=== PATIENT | female | born 1980 | race Caucasian/White ===

== ENCOUNTER 2025-04-10 13:55 | Outpatient (AMB) | payer BC, SELFPAY ==
--- NOTE | 2025-04-10 14:00 | A.OFFPC_ITS ---
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 Allergies No Known Allergies Allergy (Verified 04/10/25 14:13) Tobacco use date assessed: 04/10/25 Dental Screening Dental Screen Date: 04/10/25 Did you have a dental visit in the last 12 months?: Yes Did you have a dental problem in the last 6 months where you did not have access to dental care?: No Was dental information given to patient?: Patient has dentist HPI HPI Comments History of Present Illness Details 44-year-old female with a past medical h istory of abdominal migraines and acne presents to establish care. She is due for a physical. 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 She has 2 children. Abdominal migraines-they began 2 years ago. She was evaluated at [facility]. She was prescribed Zofran as needed for nausea and Imitrex for the headache. She has not had an episode since September. She sees [facility] for acne. No history of skin cancer. She is followed by [facility]. She had an initial mammogram with abnormal finding on the left side. She had a an ultrasound and a six-month follow up mammogram and ultrasound, and the imaging findings were stable. She was instructed to continue routine mammogram annually. She has seasonal allergies treated with [id number] antihistamine. She has chronic dry eyes. No family history of colon cancer or polyps. We discussed screening age for colonoscopy is age 46. Last tetanus immunization in 2014 per patient. Tdap administered today. Patient reports that she has chronic discoloration, coldness and intermittent sores on her toes that are painful. Last PCP told her she has chilblains, however she has concerns because this does not happen over the winter, and this condition is generally associated with cold, damp conditions. She usually applies a topical steroid cream. Patient said she saw a investigator claims years ago who told her it was not Raynaud's, but she did not get a lot more information or testing. She is a nonsmoker. ROS: Constitutional: No unexplained weight loss, fever, chills, fatigue or night sweats. Eyes: No vision changes, blurry vision, double vision, eye pain, eye redness, eye discharge. ENT: No hearing loss, sneezing, congestion, runny nose or sore throat. Respiratory: No shortness of breath, cough or sputum production. Cardiovascular: No chest pain, chest pressure or chest discomfort. No palpitations or pedal edema. Gastrointestinal: No anorexia, nausea, vomiting or diarrhea. No abdominal pain or blood in stool. Genitourinary: No dysuria, hematuria, urinary frequency. Neurologic: No headache, dizziness, syncope, unilateral weakness, ataxia, numbness or tingling in the extremities. Musculoskeletal: No muscle pain, back pain, joint pain or swelling. Hematologic/Lymphatics: No bleeding or bruising. No painful lymph nodes. Skin: No rash Endocrine: No cold or heat intolerance. No polyuria or polydipsia. Psychiatric: No depression or anxiety. No SI/HI. Physical exam: Constitutional: Alert, in no distress. Head: Normocephalic. Eyes: Pupils are equal, round and reactive to light. Extraocular muscles intact. Ear, Nose and Throat: Canals clear. TMs normal. Normal nasal mucosa. No nasal discharge. No oral lesions. Neck: Supple, Full range of motion. No lymphadenopathy. No palpable thyroid masses. Respiratory: Clear to auscultation. Cardiovascular: S1 S2 regular. No murmurs. No carotid bruits. Gastrointestinal: Abdomen soft, non-tender, non-distended. Normal bowel sounds. No palpable masses. Neurologic: No focal neurological deficits. Symmetric patellar reflexes. Moves all extremities spontaneously. Sensation intact bilaterally. Musculoskeletal: No gross deformities. Normal range of motion. Psychiatric: Normal mood and affect Feet: The toes are cool to touch, left more so than the right and there is a superficial erythematous skin lesion on the left second toe adjacent to the toenail and purplish/red discoloration of the toes bilaterally. Intact DP pulses. Intact sensation. COUNTS INCLUDE 234 BEDS AT THE [facility] Medical History (Updated 04/10/25 @ 15:08 by JENNIE Pulido) Cold extremities Chilblain-like lesions of multiple toes Screening for cardiovascular condition Routine physical examination Abdominal migraine Family History (Updated 04/10/25 @ 14:20 by Kiley Trivedi MA) Other Substance abuse Social History (Updated 04/10/25 @ 14:20 by Kiley Trivedi MA) Housing: House Alcohol intake: current Patient Tobacco Use Status: Former Tobacco user Cigarette Packs Per Day: 1 Cigarettes Per Day: 6 Years Smoked: 4 e-Cigarette/Vaping Use: Never Used Second Hand Smoke Exposure: No service: No Current occupational status: employed Current occupation: [employer] Current occupational exposures/hazards: No Cognitive needs: No Hearing needs: No Vision needs: No Questionnaire PHQ-9 Over the last 2 weeks, how often have you been bothered by any of the following problems? 1. Little interest or pleasure in doing things: not at all 2. Feeling down, depressed, or hopeless: not at all 3. Trouble falling or staying asleep, or sleeping too much: several days 4. Feeling tired or having little energy: not at all 5. Poor appetite or overeating: not at all 6. Feeling bad about yourself - or that you are a failure or have let yourself or your family down: not at all 7. Trouble concentrating on things, such as reading the newspaper or watching television: not at all 8. Moving or speaking so slowly that other people could have noticed. Or the opposite - being so fidgety or restless that you have been moving around a lot more than usual: not at all 9. Thoughts that you would be better off or of hurting yourself in some way: not at all Total score: 1 Depression Screening Interpretation: Negative Depression Screening Done: Yes 70667 - PHQ-9 Billing: Yes Source: Developed by Drs. Maurice Bartholomew, Carine Nesbitt, Dougie Hammonds and colleagues, with an educational marlena from [employer]. Thrive Questionnaire Date Thrive assessed: 04/10/25 I am a: Patient What is your living situation today?: I have a steady place to live Within the past 12 months, did the food you bought not last and you didn't have the money to get more?: Never true Within the past 12 months, did you worry whether your food would run out before you got money to buy more?: Never true Do you have trouble paying for medicines?: No Do you have trouble getting transportation to medical appointments?: No Do you have trouble paying your heating and electricity bill?: No Do you have trouble taking care of your child, family member or friend?: No Do you have trouble with day-to-day activities such as bathing, preparing meals, shopping, managing finances, etc.?: No Are you currently unemployed and looking for a job?: No Are you interested in more education?: No Please select the resources that you would like help with: None Currently or been in a relationship where the following occur: No concerns reported THRIVE Score: 0 AUDIT C Alcohol Use Questionnaire (AUDIT-C) 1. How often do you have a drink containing alcohol?: 2-3 times a week 2. How many drinks containing alcohol do you have on a typical day when you are drinking?: 1 or 2 3. How often do you have six or more drinks on one occasion?: Less than monthly Total Score: 4 MIKE-7 AMB Questionnaire MIKE-7 Date MIKE - 7 assessed: 04/10/25 Feeling nervous, anxious, or on edge: 0 = Not at all Not being able to stop or control worryin = Not at all Worrying too much about different things: 1 = Several days Trouble relaxin = Several days Being so restless that it is hard to sit still: 1 = Several days Becoming easily annoyed or irritable: 0 = Not at all Feeling afraid as if something awful might happen: 0 = Not at all Total MIKE-7 score (0-4 normal; 5-9 mild; 10-14 moderate; 15-21 severe): 3 Source: Developed by Drs. Maurice Bartholomew, Carine Nesbitt, Dougie Hammonds and colleagues, with an educational marlena from [employer]. MIKE-7 Assessment Billing MIKE-7 Assessment Tool: MIKE-7 Assessment 95667 Physical exam (Primary Care) Vital Signs: Last Vital Signs Temp 97.7 F 04/10/25 14:20 Pulse 81 04/10/25 14:20 BP 116/74 04/10/25 14:20 Pulse Ox 98 04/10/25 14:20 Oxygen Delivery Method Room Air 04/10/25 14:20 BMI result Body Mass Index 34.4 Tobacco/Smoking Status: Tobacco use Status Tobacco use date assessed 04/10/25 04/10/25 14:24 Patient Tobacco Use Status Former Tobacco user 04/10/25 14:24 e-Cigarette/Vaping Use Never Used 04/10/25 14:24 PHQ-9: PHQ-9 Score PHQ-9: Total score 1 04/10/25 14:02 Depression Screening Interpretation: Negative Thrive Assessment: Date of Thrive Assessment Date Thrive assessed 04/10/25 04/10/25 14:02 Currently or been in a relationship where the following occur: No concerns reported Coding Level of Care Code New Pt Prev Care 40-64y(16135) Diagnoses Abdominal migraine G43.D0 Routine physical examination Z00.00 Screening for cardiovascular condition Z13.6 Chilblain-like lesions of multiple toes R23.8 Cold extremities R20.9 Additional Codes MIKE-7 Assessment Billing - MIKE-7 Assessment Tool: MIKE-7 Assessment 03824 ([id number]) PHQ-9 - 19558 - PHQ-9 Billing: Yes ([id number]) Assessment & Plan Assessment & Plan (1) Abdominal migraine: Code(s): G43.D0 - Abdominal migraine, not intractable Category: Medical Plan: Stable. Imitrex and Zofran as needed. Contact office for more frequent symptoms. No episodes since September 2024. (2) Routine physical examination: Code(s): Z00.00 - Encounter for general adult medical examination without abnormal findings Category: Medical Plan: Patient is seen today for a routine physical. As part of this visit we reviewed the following issues, which are considered and essential part of preventative health in this age group: - Breast Cancer screening - Annual Data Analyst Etl Developer exam - Screening for colon cancer - Blood pressure screening - Cholesterol screening - Osteoporosis prevention including calcium/vitamin D intake, weight bearing exercise & smoking cessation - Nutritional and exercise counseling - Counseling of injury prevention including fire prevention, smoke alarms and seat belt usage - Screening for depression - Education about skin cancer - Recommendations about immunizations - Recommendation of an eye exam - Screening for substance abuse (3) Screening for cardiovascular condition: Code(s): Z13.6 - Encounter for screening for cardiovascular disorders Category: Medical (4) Chilblain-like lesions of multiple toes: Code(s): R23.8 - Other skin changes Category: Medical (5) Cold extremities: Code(s): R20.9 - Unspecified disturbances of skin sensation Category: Medical Plan: She endorses symptoms for years which are stable. Check CBC, PATRICK, CRP, TSH and Sjogren's antibodies. Refer to Rheumatology. Reviewed signs and symptoms warranting ER evaluation. Plan Schedule physical in 1 year. Orders: Orders Complete Blood Count no Diff Today G43.D0 - Abdominal migraine, not intractable, Z00.00 - Encounter for general adult medical examination without abnormal findings, Z13.6 - Encounter for screening for cardiovascular disorders PATRICK Reflex Titer and Pattern Today I77.6 - Arteritis, unspecified C Reactive Protein Today I77.6 - Arteritis, unspecified Comprehensive Met. Panel Today G43.D0 - Abdominal migraine, not intractable, Z00.00 - Encounter for general adult medical examination without abnormal findings, Z13.6 - Encounter for screening for cardiovascular disorders Lipid Panel Today E78.5 - Hyperlipidemia, unspecified, G43.D0 - Abdominal migraine, not intractable, Z00.00 - Encounter for general adult medical examination without abnormal findings, Z13.6 - Encounter for screening for cardiovascular disorders TSH reflex Free T4 Today G43.D0 - Abdominal migraine, not intractable, Z00.00 - Encounter for general adult medical examination without abnormal findings, Z13.6 - Encounter for screening for cardiovascular disorders Sjogren's Antibodies Today I77.6 - Arteritis, unspecified TDaP Immunization Today Z23 - Encounter for immunization Referrals Rheumatology Referral I77.6 - Arteritis, unspecified Medications: New Boostrix Tdap (diphth,pertus(acell),tetanus) 0.5 mL IM ONCE 0.5 mL 0RF NS Z23 - Encounter for immunization
[2025-04-10 14:20] VITALS: BP 116/74; PULSE 81; TEMP 36.5; O2SAT 98; BMI 34.4
--- OUTSIDE RECORDS SUMMARY | 2025-04-10 16:48 | XMS_ITS | Patient Health Record ---
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 Name Role Phone RAHUL DUNN Unavailable [phone] Reason For Referral No Information Medications Medication SIG (Take, Route, Frequency, Duration) Notes Start Date End Date Status traZODone HCl 50 MG 1 tablet at bedtime as needed Orally Once a day; Duration: 30 day(s) 12/25/2024 Active Clindamycin Phosphate 1 % APPLY TO FACE IN THE MORNING External; Duration: 30 Days Active Tretinoin 0.025 % External; Duration: 30 Days Active Ondansetron 4 MG 1 tablet on the tong ue and allow to dissolve Orally Once a day Active SUMAtriptan Succinate 50 MG 1 tablet as needed, may take second dose at least 2 hours after first dose up to 4 tablets per day as needed Orally Once a day Active Problems Problem Type SNOMED Code ICD Code Onset Dates Problem Status W/U Status Risk Notes Problem Primary insomnia (5577529) Primary insomnia (F51.01) Active confirmed Problem Lipid screening (582119172) Encounter for screening for lipoid disorders (Z13.220) Active confirmed Problem Adult health examination (182454183) Adult general medical exam (Z00.00) Active confirmed Problem Vitamin D deficiency (27770980) Vitamin D deficiency (E55.9) Active confirmed Problem Obese class II (627344961383685 ) BMI 35.0-35.9,adult (Z68.35) Active confirmed Problem Adult-onset obesity (183730231) Adult-onset obesity (E66.9) Active confirmed Problem Endocrine/[place] lic screening (000149924) Encounter for screening for endocrine disorder (Z13.29) Active confirmed Problem Episodic migraine (533247063413559 ) Episodic migraine (G43.909) Active confirmed Vital Signs Heart Rate 90 /min 12/25/2024 Blood pressure diastolic 76 mm Hg 12/25/2024 Oximetry 99 % 12/25/2024 Height 60 in 12/25/2024 Blood pressure systolic 126 mm Hg 12/25/2024 Weight 181 lbs 12/25/2024 BMI 35.35 kg/m2 12/25/2024 Encounters Encounter Location Date Provider Diagnosis [facility] [address] [address] 12/25/2024 RAHUL DUNN Adult-onset obesity E66.9 ; BMI 35.0-35.9,adult Z68.35 ; Episodic migraine G43.909 ; Primary insomnia F51.01 and Acne vulgaris L70.0 [facility] [address] [address] 12/23/2024 RAHUL DUNN Assessments Encounter Date Diagnosis (ICD Code) Assessment Notes Treatment Notes Treatment Clinical Notes Section Notes 12/25/2024 BMI 35.0-35.9,ana lt (ICD-10 - Z68.35) Ellen is a 44-year-old female with history of obesity who presents to the office today for weight management consult. Medical history, labs, allergies, medications, and social history reviewed with the patient. Provided education on healthy diet and lifestyle which includes high-protein, low carbohydrate, high-fiber, and a variety of fruits and vegetables. Patient encouraged to exercise with emphasis on resistance training minimum 3 times per week to maintain muscle mass and cardio to burn fat. All patient questions answered. Patient will follow-up in 2 to 4 weeks for weight management. 12/25/2024: Weight 181 pounds, BMI 35.35. Seca scan completed today and interpreted with the patient. Reporting several factors contributory to weight gain including lack of time for meal prepping and exercise. Previously was at a weight of 125 pounds prior to the pandemic. Has since had progressive increase of weight despite trying to maintain a balanced diet. We discussed several treatment options for obesity including phentermine, Contrave, and GLP-1 agonist. Patient likely having most interest or phentermine however would like to further consider this decision. Discussed goals of diet and exercise as well as hydration 60 to 80 ounces daily. Patient will follow-up in office in approximate 4 weeks for further evaluation. Will likely call the office sooner to discuss medications if she would like to initiate treatment. # Insomnia: Continue trazodone 50 mg 1 tablet at bedtime as needed for sleep aid. # Migraines: Patient reporting abdominal subset migraines. Continue sumatriptan 1 tablet as needed prior to migraine onset. Can repeat 1 to 2 hours afterwards if necessary. Continue Zofran as needed for associated nausea. # Acne vulgaris: Continue tretinoin 0.025% cream applied to skin nightly. Continue topical clindamycin phosphate 1% lotion to apply to the face daily in the morning. Patient was reassured and welcomed to the practice. We discussed that we stress a hollistic medical approach with emphasis on lifestyle modification. Patient was informed that a healthy lifestyle with exercise and good eating habits can help reduce their risk of medical complications. Patient is explained that obesity increases their risk of diabetes, cardiovascular disease, or organ damage. We spent a lot of time discussing the relationship between food, exercise, sleep, mental health and obesity. Patient was counseled on the importance EATING local, organic food when possible. Patient was educated on clean 15 and dirty dozen. I provided information about reading books called The Food Rules by Curt Roblero and Eat Fat Get Lean by Dr Tello Lepe. Self education is important in the journey for weight management. Patient was offered diagnostic testing/ SECA scale. We want to measure visceral adiposity, advanced body composition, adverse lipids, fatty acid balance, risk for heart disease and atherosclerosis, markers of inflammation and genetic susceptibility. Patient was counseled on weight management and was advised to lose weight using A. Meal Replacement Products Patient was educated on the replacement products called optifast. This is a good way of taking fixed amount of calories. It has been shown in studies to be ineffective weight management tool. This however has to be coupled with lifestyle intervention as well as laboratory data and EKG monitoring. It is impossible to know how a person will tolerate complete meal replacement. The side effects of meal replacement and weight loss could include syncopal attacks, dizziness, gallstones, potential cholecystectomy, possible heart attack and even . The benefits of meal replacement would be potential weight loss but no guarantees can be made. Meal replacement products are not covered by insurance. Once the patient has bought these products we cannot return them B. Lifestyle management which includes several strategies as below 1. Eat a low carbohydrate good fat good protein diet. Eliminate refined carbohydrates from the diet. Limit sugared beverages. Eat local organic when possible. Cook your own meals. Read food labels. Focus on healthy snacks. Portion control and food with low glycemic index 2. Exercise regularly. Try to get at least 6000 steps a day. Use a predominant to track activity level. Consider using apps like 7 minute excercise, Closet Couturepal, lose it, stick as needed for self-monitoring and weight management. Consider group exercises. Consider hiring a personal support worker. Regular exercise is ann to sustainable health and prevents as a buffer against weight regain 3. Sleep is most important for healing. Try to sleep at least 6-8 hours a night. A good quality sleep needs a sleep ritual with ideal room temperature of around 68. It might help to take a shower and have no electronics in the room and sleep in a very dark room without artificial light. Start sleep routine and get up early in the morning and go to bed on time. 4. Make a social connection. Surround yourself with positive people with positive energy. Connect with friends and family. 5. Get into the habit of meditating and mindfulness while doing everything. 6. Go outside and connect with nature. C. Prescription medications Patient was educated on the use of prescription medications for medical weight loss. This is a growing list and includes phentermine, Topamax,Qsymia, contrave, belviq and saxenda, wegovy etc. All prescription medications could have side effects including but not limited to kidney stones, seizure disorder cardiac arrhythmias heart attack pancreatitis, GI effects, Etc. Patient was encouraged to read the prescription insert and have coaching with their pharmacist and make an informed decision about taking medication and know that these medications are being prescribed with good intentions and we do not know how a patient would react to the medication. Some medications are FDA approved for weight loss and there is also off label use depending on patient's inability to afford medications in an attempt to lose weight D. Behavioral counseling was done to establish a relationship between food and an mood. Patient was provided information about local counseling and psychiatry and Dr Bejarano at [facility]. We would like to cover regular topics and build on low glycemic eating exercise mindful eating, using yoga and meditation along with deep breathing and connecting with friends and family. E. MASS PAT reviewed, Patient's current medications were reviewed and opinion was given on medication that can cause weight gain and can be substituted F. Patient was assessed for risk with obesity including and not limiting to atherosclerosis heart disease stroke kidney disease, restrictive lung disease, irritable bowel syndrome and overall mortality. Risk of developing prediabetes diabetes and metabolic syndrome was discussed G. Therapeutic plan: We have decided to make therapeutic plan which would include choosing wisely on calories restricting portion getting active, tracking weight, getting good quality sleep and working on time management H. Patient will follow up in 4 weeks for weight management Total time spent today was 60 minutes of which greater than 50% was spent on coordinating and counseling Case discussed with collaborating physician Ck Wang who reviewed the assessment and plan. Chart, medications, labs, vital signs reviewed. Dictation was accomplished with the use of [employer] voice recognition software, prone to medical misidentifications and grammatical errors. This is unintentional and the practitioner does try to identify and correct these, but some could still be present. Please do not hesitate to contact practitioner for clarification. All questions answered to patients satisfaction. Patient verbalized understanding of diagnosis and treatments explained. To call sooner prior to next visit it any questions/concerns arise. 12/25/2024 Adult-onset obesity (ICD-10 - E66.9) Ellen is a 44-year-old female with history of obesity who presents to the office today for weight management consult. Medical history, labs, allergies, medications, and social history reviewed with the patient. Provided education on healthy diet and lifestyle which includes high-protein, low carbohydrate, high-fiber, and a variety of fruits and vegetables. Patient encouraged to exercise with emphasis on resistance training minimum 3 times per week to maintain muscle mass and cardio to burn fat. All patient questions answered. Patient will follow-up in 2 to 4 weeks for weight management. 12/25/2024: Weight 181 pounds, BMI 35.35. Seca scan completed today and interpreted with the patient. Reporting several factors contributory to weight gain including lack of time for meal prepping and exercise. Previously was at a weight of 125 pounds prior to the pandemic. Has since had progressive increase of weight despite trying to maintain a balanced diet. We discussed several treatment options for obesity including phentermine, Contrave, and GLP-1 agonist. Patient likely having most interest or phentermine however would like to further consider this decision. Discussed goals of diet and exercise as well as hydration 60 to 80 ounces daily. Patient will follow-up in office in approximate 4 weeks for further evaluation. Will likely call the office sooner to discuss medications if she would like to initiate treatment. # Insomnia: Continue trazodone 50 mg 1 tablet at bedtime as needed for sleep aid. # Migraines: Patient reporting abdominal subset migraines. Continue sumatriptan 1 tablet as needed prior to migraine onset. Can repeat 1 to 2 hours afterwards if necessary. Continue Zofran as needed for associated nausea. # Acne vulgaris: Continue tretinoin 0.025% cream applied to skin nightly. Continue topical clindamycin phosphate 1% lotion to apply to the face daily in the morning. Patient was reassured and welcomed to the practice. We discussed that we stress a hollistic medical approach with emphasis on lifestyle modification. Patient was informed that a healthy lifestyle with exercise and good eating habits can help reduce their risk of medical complications. Patient is explained that obesity increases their risk of diabetes, cardiovascular disease, or organ damage. We spent a lot of time discussing the relationship between food, exercise, sleep, mental health and obesity. Patient was counseled on the importance EATING local, organic food when possible. Patient was educated on clean 15 and dirty dozen. I provided information about reading books called The Food Rules by Curt Roblero and Eat Fat Get Lean by Dr Tello Lepe. Self education is important in the journey for weight management. Patient was offered diagnostic testing/ SECA scale. We want to measure visceral adiposity, advanced body composition, adverse lipids, fatty acid balance, risk for heart disease and atherosclerosis, markers of inflammation and genetic susceptibility. Patient was counseled on weight management and was advised to lose weight using A. Meal Replacement Products Patient was educated on the replacement products called optifast. This is a good way of taking fixed amount of calories. It has been shown in studies to be ineffective weight management tool. This however has to be coupled with lifestyle intervention as well as laboratory data and EKG monitoring. It is impossible to know how a person will tolerate complete meal replacement. The side effects of meal replacement and weight loss could include syncopal attacks, dizziness, gallstones, potential cholecystectomy, possible heart attack and even . The benefits of meal replacement would be potential weight loss but no guarantees can be made. Meal replacement products are not covered by insurance. Once the patient has bought these products we cannot return them B. Lifestyle management which includes several strategies as below 1. Eat a low carbohydrate good fat good protein diet. Eliminate refined carbohydrates from the diet. Limit sugared beverages. Eat local organic when possible. Cook your own meals. Read food labels. Focus on healthy snacks. Portion control and food with low glycemic index 2. Exercise regularly. Try to get at least 6000 steps a day. Use a predominant to track activity level. Consider using apps like 7 minute excercise, Closet Couturepal, lose it, stick as needed for self-monitoring and weight management. Consider group exercises. Consider hiring a personal support worker. Regular exercise is ann to sustainable health and prevents as a buffer against weight regain 3. Sleep is most important for healing. Try to sleep at least 6-8 hours a night. A good quality sleep needs a sleep ritual with ideal room temperature of around 68. It might help to take a shower and have no electronics in the room and sleep in a very dark room without artificial light. Start sleep routine and get up early in the morning and go to bed on time. 4. Make a social connection. Surround yourself with positive people with positive energy. Connect with friends and family. 5. Get into the habit of meditating and mindfulness while doing everything. 6. Go outside and connect with nature. C. Prescription medications Patient was educated on the use of prescription medications for medical weight loss. This is a growing list and includes phentermine, Topamax,Qsymia, contrave, belviq and saxenda, wegovy etc. All prescription medications could have side effects including but not limited to kidney stones, seizure disorder cardiac arrhythmias heart attack pancreatitis, GI effects, Etc. Patient was encouraged to read the prescription insert and have coaching with their pharmacist and make an informed decision about taking medication and know that these medications are being prescribed with good intentions and we do not know how a patient would react to the medication. Some medications are FDA approved for weight loss and there is also off label use depending on patient's inability to afford medications in an attempt to lose weight D. Behavioral counseling was done to establish a relationship between food and an mood. Patient was provided information about local counseling and psychiatry and Dr Bejarano at [facility]. We would like to cover regular topics and build on low glycemic eating exercise mindful eating, using yoga and meditation along with deep breathing and connecting with friends and family. E. MASS PAT reviewed, Patient's current medications were reviewed and opinion was given on medication that can cause weight gain and can be substituted F. Patient was assessed for risk with obesity including and not limiting to atherosclerosis heart disease stroke kidney disease, restrictive lung disease, irritable bowel syndrome and overall mortality. Risk of developing prediabetes diabetes and metabolic syndrome was discussed G. Therapeutic plan: We have decided to make therapeutic plan which would include choosing wisely on calories restricting portion getting active, tracking weight, getting good quality sleep and working on time management H. Patient will follow up in 4 weeks for weight management Total time spent today was 60 minutes of which greater than 50% was spent on coordinating and counseling Case discussed with collaborating physician Ck Wang who reviewed the assessment and plan. Chart, medications, labs, vital signs reviewed. Dictation was accomplished with the use of [employer] voice recognition software, prone to medical misidentifications and grammatical errors. This is unintentional and the practitioner does try to identify and correct these, but some could still be present. Please do not hesitate to contact practitioner for clarification. All questions answered to patients satisfaction. Patient verbalized understanding of diagnosis and treatments explained. To call sooner prior to next visit it any questions/concerns arise. 12/25/2024 Episodic migraine (ICD-10 - G43.909) Ellen is a 44-year-old female with history of obesity who presents to the office today for weight management consult. Medical history, labs, allergies, medications, and social history reviewed with the patient. Provided education on healthy diet and lifestyle which includes high-protein, low carbohydrate, high-fiber, and a variety of fruits and vegetables. Patient encouraged to exercise with emphasis on resistance training minimum 3 times per week to maintain muscle mass and cardio to burn fat. All patient questions answered. Patient will follow-up in 2 to 4 weeks for weight management. 12/25/2024: Weight 181 pounds, BMI 35.35. Seca scan completed today and interpreted with the patient. Reporting several factors contributory to weight gain including lack of time for meal prepping and exercise. Previously was at a weight of 125 pounds prior to the pandemic. Has since had progressive increase of weight despite trying to maintain a balanced diet. We discussed several treatment options for obesity including phentermine, Contrave, and GLP-1 agonist. Patient likely having most interest or phentermine however would like to further consider this decision. Discussed goals of diet and exercise as well as hydration 60 to 80 ounces daily. Patient will follow-up in office in approximate 4 weeks for further evaluation. Will likely call the office sooner to discuss medications if she would like to initiate treatment. # Insomnia: Continue trazodone 50 mg 1 tablet at bedtime as needed for sleep aid. # Migraines: Patient reporting abdominal subset migraines. Continue sumatriptan 1 tablet as needed prior to migraine onset. Can repeat 1 to 2 hours afterwards if necessary. Continue Zofran as needed for associated nausea. # Acne vulgaris: Continue tretinoin 0.025% cream applied to skin nightly. Continue topical clindamycin phosphate 1% lotion to apply to the face daily in the morning. Patient was reassured and welcomed to the practice. We discussed that we stress a hollistic medical approach with emphasis on lifestyle modification. Patient was informed that a healthy lifestyle with exercise and good eating habits can help reduce their risk of medical complications. Patient is explained that obesity increases their risk of diabetes, cardiovascular disease, or organ damage. We spent a lot of time discussing the relationship between food, exercise, sleep, mental health and obesity. Patient was counseled on the importance EATING local, organic food when possible. Patient was educated on clean 15 and dirty dozen. I provided information about reading books called The Food Rules by Curt Roblero and Eat Fat Get Lean by Dr Tello Lepe. Self education is important in the journey for weight management. Patient was offered diagnostic testing/ SECA scale. We want to measure visceral adiposity, advanced body composition, adverse lipids, fatty acid balance, risk for heart disease and atherosclerosis, markers of inflammation and genetic susceptibility. Patient was counseled on weight management and was advised to lose weight using A. Meal Replacement Products Patient was educated on the replacement products called optifast. This is a good way of taking fixed amount of calories. It has been shown in studies to be ineffective weight management tool. This however has to be coupled with lifestyle intervention as well as laboratory data and EKG monitoring. It is impossible to know how a person will tolerate complete meal replacement. The side effects of meal replacement and weight loss could include syncopal attacks, dizziness, gallstones, potential cholecystectomy, possible heart attack and even . The benefits of meal replacement would be potential weight loss but no guarantees can be made. Meal replacement products are not covered by insurance. Once the patient has bought these products we cannot return them B. Lifestyle management which includes several strategies as below 1. Eat a low carbohydrate good fat good protein diet. Eliminate refined carbohydrates from the diet. Limit sugared beverages. Eat local organic when possible. Cook your own meals. Read food labels. Focus on healthy snacks. Portion control and food with low glycemic index 2. Exercise regularly. Try to get at least 6000 steps a day. Use a predominant to track activity level. Consider using apps like 7 minute excercise, Closet Couturepal, lose it, stick as needed for self-monitoring and weight management. Consider group exercises. Consider hiring a personal support worker. Regular exercise is ann to sustainable health and prevents as a buffer against weight regain 3. Sleep is most important for healing. Try to sleep at least 6-8 hours a night. A good quality sleep needs a sleep ritual with ideal room temperature of around 68. It might help to take a shower and have no electronics in the room and sleep in a very dark room without artificial light. Start sleep routine and get up early in the morning and go to bed on time. 4. Make a social connection. Surround yourself with positive people with positive energy. Connect with friends and family. 5. Get into the habit of meditating and mindfulness while doing everything. 6. Go outside and connect with nature. C. Prescription medications Patient was educated on the use of prescription medications for medical weight loss. This is a growing list and includes phentermine, Topamax,Qsymia, contrave, belviq and saxenda, wegovy etc. All prescription medications could have side effects including but not limited to kidney stones, seizure disorder cardiac arrhythmias heart attack pancreatitis, GI effects, Etc. Patient was encouraged to read the prescription insert and have coaching with their pharmacist and make an informed decision about taking medication and know that these medications are being prescribed with good intentions and we do not know how a patient would react to the medication. Some medications are FDA approved for weight loss and there is also off label use depending on patient's inability to afford medications in an attempt to lose weight D. Behavioral counseling was done to establish a relationship between food and an mood. Patient was provided information about local counseling and psychiatry and Dr Bejarano at [facility]. We would like to cover regular topics and build on low glycemic eating exercise mindful eating, using yoga and meditation along with deep breathing and connecting with friends and family. E. MASS PAT reviewed, Patient's current medications were reviewed and opinion was given on medication that can cause weight gain and can be substituted F. Patient was assessed for risk with obesity including and not limiting to atherosclerosis heart disease stroke kidney disease, restrictive lung disease, irritable bowel syndrome and overall mortality. Risk of developing prediabetes diabetes and metabolic syndrome was discussed G. Therapeutic plan: We have decided to make therapeutic plan which would include choosing wisely on calories restricting portion getting active, tracking weight, getting good quality sleep and working on time management H. Patient will follow up in 4 weeks for weight management Total time spent today was 60 minutes of which greater than 50% was spent on coordinating and counseling Case discussed with collaborating physician Ck Wang who reviewed the assessment and plan. Chart, medications, labs, vital signs reviewed. Dictation was accomplished with the use of [employer] voice recognition software, prone to medical misidentifications and grammatical errors. This is unintentional and the practitioner does try to identify and correct these, but some could still be present. Please do not hesitate to contact practitioner for clarification. All questions answered to patients satisfaction. Patient verbalized understanding of diagnosis and treatments explained. To call sooner prior to next visit it any questions/concerns arise. 12/25/2024 Primary insomnia (ICD-10 - F51.01) Ellen is a 44-year-old female with history of obesity who presents to the office today for weight management consult. Medical history, labs, allergies, medications, and social history reviewed with the patient. Provided education on healthy diet and lifestyle which includes high-protein, low carbohydrate, high-fiber, and a variety of fruits and vegetables. Patient encouraged to exercise with emphasis on resistance training minimum 3 times per week to maintain muscle mass and cardio to burn fat. All patient questions answered. Patient will follow-up in 2 to 4 weeks for weight management. 12/25/2024: Weight 181 pounds, BMI 35.35. Seca scan completed today and interpreted with the patient. Reporting several factors contributory to weight gain including lack of time for meal prepping and exercise. Previously was at a weight of 125 pounds prior to the pandemic. Has since had progressive increase of weight despite trying to maintain a balanced diet. We discussed several treatment options for obesity including phentermine, Contrave, and GLP-1 agonist. Patient likely having most interest or phentermine however would like to further consider this decision. Discussed goals of diet and exercise as well as hydration 60 to 80 ounces daily. Patient will follow-up in office in approximate 4 weeks for further evaluation. Will likely call the office sooner to discuss medications if she would like to initiate treatment. # Insomnia: Continue trazodone 50 mg 1 tablet at bedtime as needed for sleep aid. # Migraines: Patient reporting abdominal subset migraines. Continue sumatriptan 1 tablet as needed prior to migraine onset. Can repeat 1 to 2 hours afterwards if necessary. Continue Zofran as needed for associated nausea. # Acne vulgaris: Continue tretinoin 0.025% cream applied to skin nightly. Continue topical clindamycin phosphate 1% lotion to apply to the face daily in the morning. Patient was reassured and welcomed to the practice. We discussed that we stress a hollistic medical approach with emphasis on lifestyle modification. Patient was informed that a healthy lifestyle with exercise and good eating habits can help reduce their risk of medical complications. Patient is explained that obesity increases their risk of diabetes, cardiovascular disease, or organ damage. We spent a lot of time discussing the relationship between food, exercise, sleep, mental health and obesity. Patient was counseled on the importance EATING local, organic food when possible. Patient was educated on clean 15 and dirty dozen. I provided information about reading books called The Food Rules by Curt Roblero and Eat Fat Get Lean by Dr Tello Lepe. Self education is important in the journey for weight management. Patient was offered diagnostic testing/ SECA scale. We want to measure visceral adiposity, advanced body composition, adverse lipids, fatty acid balance, risk for heart disease and atherosclerosis, markers of inflammation and genetic susceptibility. Patient was counseled on weight management and was advised to lose weight using A. Meal Replacement Products Patient was educated on the replacement products called optifast. This is a good way of taking fixed amount of calories. It has been shown in studies to be ineffective weight management tool. This however has to be coupled with lifestyle intervention as well as laboratory data and EKG monitoring. It is impossible to know how a person will tolerate complete meal replacement. The side effects of meal replacement and weight loss could include syncopal attacks, dizziness, gallstones, potential cholecystectomy, possible heart attack and even . The benefits of meal replacement would be potential weight loss but no guarantees can be made. Meal replacement products are not covered by insurance. Once the patient has bought these products we cannot return them B. Lifestyle management which includes several strategies as below 1. Eat a low carbohydrate good fat good protein diet. Eliminate refined carbohydrates from the diet. Limit sugared beverages. Eat local organic when possible. Cook your own meals. Read food labels. Focus on healthy snacks. Portion control and food with low glycemic index 2. Exercise regularly. Try to get at least 6000 steps a day. Use a predominant to track activity level. Consider using apps like 7 minute exceHivelyise, Closet Couturepal, lose it, stick as needed for self-monitoring and weight management. Consider group exercises. Consider hiring a personal support worker. Regular exercise is ann to sustainable health and prevents as a buffer against weight regain 3. Sleep is most important for healing. Try to sleep at least 6-8 hours a night. A good quality sleep needs a sleep ritual with ideal room temperature of around 68. It might help to take a shower and have no electronics in the room and sleep in a very dark room without artificial light. Start sleep routine and get up early in the morning and go to bed on time. 4. Make a social connection. Surround yourself with positive people with positive energy. Connect with friends and family. 5. Get into the habit of meditating and mindfulness while doing everything. 6. Go outside and connect with nature. C. Prescription medications Patient was educated on the use of prescription medications for medical weight loss. This is a growing list and includes phentermine, Topamax,Qsymia, contrave, belviq and saxenda, wegovy etc. All prescription medications could have side effects including but not limited to kidney stones, seizure disorder cardiac arrhythmias heart attack pancreatitis, GI effects, Etc. Patient was encouraged to read the prescription insert and have coaching with their pharmacist and make an informed decision about taking medication and know that these medications are being prescribed with good intentions and we do not know how a patient would react to the medication. Some medications are FDA approved for weight loss and there is also off label use depending on patient's inability to afford medications in an attempt to lose weight D. Behavioral counseling was done to establish a relationship between food and an mood. Patient was provided information about local counseling and psychiatry and Dr Bejarano at [facility]. We would like to cover regular topics and build on low glycemic eating exercise mindful eating, using yoga and meditation along with deep breathing and connecting with friends and family. E. MASS PAT reviewed, Patient's current medications were reviewed and opinion was given on medication that can cause weight gain and can be substituted F. Patient was assessed for risk with obesity including and not limiting to atherosclerosis heart disease stroke kidney disease, restrictive lung disease, irritable bowel syndrome and overall mortality. Risk of developing prediabetes diabetes and metabolic syndrome was discussed G. Therapeutic plan: We have decided to make therapeutic plan which would include choosing wisely on calories restricting portion getting active, tracking weight, getting good quality sleep and working on time management H. Patient will follow up in 4 weeks for weight management Total time spent today was 60 minutes of which greater than 50% was spent on coordinating and counseling Case discussed with collaborating physician Ck Wang who reviewed the assessment and plan. Chart, medications, labs, vital signs reviewed. Dictation was accomplished with the use of [employer] voice recognition software, prone to medical misidentifications and grammatical errors. This is unintentional and the practitioner does try to identify and correct these, but some could still be present. Please do not hesitate to contact practitioner for clarification. All questions answered to patients satisfaction. Patient verbalized understanding of diagnosis and treatments explained. To call sooner prior to next visit it any questions/concerns arise. 12/25/2024 Acne vulgaris (ICD-10 - L70.0) Ellen is a 44-year-old female with history of obesity who presents to the office today for weight management consult. Medical history, labs, allergies, medications, and social history reviewed with the patient. Provided education on healthy diet and lifestyle which includes high-protein, low carbohydrate, high-fiber, and a variety of fruits and vegetables. Patient encouraged to exercise with emphasis on resistance training minimum 3 times per week to maintain muscle mass and cardio to burn fat. All patient questions answered. Patient will follow-up in 2 to 4 weeks for weight management. 12/25/2024: Weight 181 pounds, BMI 35.35. Seca scan completed today and interpreted with the patient. Reporting several factors contributory to weight gain including lack of time for meal prepping and exercise. Previously was at a weight of 125 pounds prior to the pandemic. Has since had progressive increase of weight despite trying to maintain a balanced diet. We discussed several treatment options for obesity including phentermine, Contrave, and GLP-1 agonist. Patient likely having most interest or phentermine however would like to further consider this decision. Discussed goals of diet and exercise as well as hydration 60 to 80 ounces daily. Patient will follow-up in office in approximate 4 weeks for further evaluation. Will likely call the office sooner to discuss medications if she would like to initiate treatment. # Insomnia: Continue trazodone 50 mg 1 tablet at bedtime as needed for sleep aid. # Migraines: Patient reporting abdominal subset migraines. Continue sumatriptan 1 tablet as needed prior to migraine onset. Can repeat 1 to 2 hours afterwards if necessary. Continue Zofran as needed for associated nausea. # Acne vulgaris: Continue tretinoin 0.025% cream applied to skin nightly. Continue topical clindamycin phosphate 1% lotion to apply to the face daily in the morning. Patient was reassured and welcomed to the practice. We discussed that we stress a hollistic medical approach with emphasis on lifestyle modification. Patient was informed that a healthy lifestyle with exercise and good eating habits can help reduce their risk of medical complications. Patient is explained that obesity increases their risk of diabetes, cardiovascular disease, or organ damage. We spent a lot of time discussing the relationship between food, exercise, sleep, mental health and obesity. Patient was counseled on the importance EATING local, organic food when possible. Patient was educated on clean 15 and dirty dozen. I provided information about reading books called The Food Rules by Curt Roblero and Eat Fat Get Lean by Dr Tello Lepe. Self education is important in the journey for weight management. Patient was offered diagnostic testing/ SECA scale. We want to measure visceral adiposity, advanced body composition, adverse lipids, fatty acid balance, risk for heart disease and atherosclerosis, markers of inflammation and genetic susceptibility. Patient was counseled on weight management and was advised to lose weight using A. Meal Replacement Products Patient was educated on the replacement products called optifast. This is a good way of taking fixed amount of calories. It has been shown in studies to be ineffective weight management tool. This however has to be coupled with lifestyle intervention as well as laboratory data and EKG monitoring. It is impossible to know how a person will tolerate complete meal replacement. The side effects of meal replacement and weight loss could include syncopal attacks, dizziness, gallstones, potential cholecystectomy, possible heart attack and even . The benefits of meal replacement would be potential weight loss but no guarantees can be made. Meal replacement products are not covered by insurance. Once the patient has bought these products we cannot return them B. Lifestyle management which includes several strategies as below 1. Eat a low carbohydrate good fat good protein diet. Eliminate refined carbohydrates from the diet. Limit sugared beverages. Eat local organic when possible. Cook your own meals. Read food labels. Focus on healthy snacks. Portion control and food with low glycemic index 2. Exercise regularly. Try to get at least 6000 steps a day. Use a predominant to track activity level. Consider using apps like 7 minute excercise, Closet Couturepal, lose it, stick as needed for self-monitoring and weight management. Consider group exercises. Consider hiring a personal support worker. Regular exercise is ann to sustainable health and prevents as a buffer against weight regain 3. Sleep is most important for healing. Try to sleep at least 6-8 hours a night. A good quality sleep needs a sleep ritual with ideal room temperature of around 68. It might help to take a shower and have no electronics in the room and sleep in a very dark room without artificial light. Start sleep routine and get up early in the morning and go to bed on time. 4. Make a social connection. Surround yourself with positive people with positive energy. Connect with friends and family. 5. Get into the habit of meditating and mindfulness while doing everything. 6. Go outside and connect with nature. C. Prescription medications Patient was educated on the use of prescription medications for medical weight loss. This is a growing list and includes phentermine, Topamax,Qsymia, contrave, belviq and saxenda, wegovy etc. All prescription medications could have side effects including but not limited to kidney stones, seizure disorder cardiac arrhythmias heart attack pancreatitis, GI effects, Etc. Patient was encouraged to read the prescription insert and have coaching with their pharmacist and make an informed decision about taking medication and know that these medications are being prescribed with good intentions and we do not know how a patient would react to the medication. Some medications are FDA approved for weight loss and there is also off label use depending on patient's inability to afford medications in an attempt to lose weight D. Behavioral counseling was done to establish a relationship between food and an mood. Patient was provided information about local counseling and psychiatry and Dr Bejarano at [facility]. We would like to cover regular topics and build on low glycemic eating exercise mindful eating, using yoga and meditation along with deep breathing and connecting with friends and family. E. MASS PAT reviewed, Patient's current medications were reviewed and opinion was given on medication that can cause weight gain and can be substituted F. Patient was assessed for risk with obesity including and not limiting to atherosclerosis heart disease stroke kidney disease, restrictive lung disease, irritable bowel syndrome and overall mortality. Risk of developing prediabetes diabetes and metabolic syndrome was discussed G. Therapeutic plan: We have decided to make therapeutic plan which would include choosing wisely on calories restricting portion getting active, tracking weight, getting good quality sleep and working on time management H. Patient will follow up in 4 weeks for weight management Total time spent today was 60 minutes of which greater than 50% was spent on coordinating and counseling Case discussed with collaborating physician Ck Wang who reviewed the assessment and plan. Chart, medications, labs, vital signs reviewed. Dictation was accomplished with the use of [employer] voice recognition software, prone to medical misidentifications and grammatical errors. This is unintentional and the practitioner does try to identify and correct these, but some could still be present. Please do not hesitate to contact practitioner for clarification. All questions answered to patients satisfaction. Patient verbalized understanding of diagnosis and treatments explained. To call sooner prior to next visit it any questions/concerns arise. Plan Of Treatment Pending Test Test Name Order Date TSH 12/25/2024 Lipid Panel 12/25/2024 COMPREHENSIVE METABOLIC PANEL 12/25/2024 CBC with Differential 12/25/2024 VITAMIN D,25-OH,TOTAL,IA 12/25/2024 Insurance Providers Payer Name Payer Address Payer Phone Subscriber Number Group Number Insured Name Patient Relationship to Insured Coverage Start Date Coverage End Date [facility] and [facility] [address] [place] [address] [id number] Ellen Swanson Self - patient is the insured
== END 2025-04-10 15:10 | disposition home or self-care (01) ==
LOC: HO.HMCFM 13:56
PROVIDERS: Visit Provider Physician Assistant Medical
DX: G43.D0 Abdominal migraine, not intractable (principal); Z00.00 Encounter for general adult medical examination without abnormal findings; Z13.6 Encounter for screening for cardiovascular disorders; R23.8 Other skin changes; R20.9 Unspecified disturbances of skin sensation; Z23 Encounter for immunization

== ENCOUNTER → 2025-04-10 13:55 | Outpatient (BNVA) | payer BC, SELFPAY | PROVIDERS: Visit Provider Physician Assistant Medical | DX: Z00.00 Encounter for general adult medical examination without abnormal findings (principal); Z23 Encounter for immunization; G43.D0 Abdominal migraine, not intractable; R23.8 Other skin changes; R20.9 Unspecified disturbances of skin sensation; Z87.891 Personal history of nicotine dependence | CPT/HCPCS: 90471; 90715; 96127 ==

== ENCOUNTER 2025-04-29 07:32 | Outpatient (REF) | payer BC, SELFPAY ==
--- OUTSIDE RECORDS SUMMARY | 2025-04-29 07:36 | XMS_ITS | Patient Health Record ---
[facility] Address [address] [place] [address] Care Team Providers Care 411 Directory Assistance Operator Name Role Phone RAHUL DUNN Unavailable [phone] Reason For Referral No Information Medications Medication [...] W/U Status Risk Notes Problem Primary insomnia (6035503) Primary insomnia (F51.01) Active confirmed Problem Lipid screening (841007117) Encounter for screening for lipoid disorders (Z13.220) Active confirmed Problem Adult health examination (233214888) Adult general medical exam (Z00.00) Active confirmed Problem Vitamin D deficiency (08229040) Vitamin D deficiency (E55.9) Active confirmed Problem Obese class II (647519884535455 ) BMI 35.0-35.9,adult (Z68.35) Active confirmed Problem Adult-onset obesity (857192374) Adult-onset obesity (E66.9) Active confirmed Problem Endocrine/[place] lic screening (895234852) Encounter for screening for endocrine disorder (Z13.29) Active confirmed Problem Episodic migraine (576810711248693 ) Episodic migraine (G43.909) Active confirmed Vital Signs Heart Rate 90 /min 12/25/2024 Oximetry 99 % 12/25/2024 Blood pressure diastolic 76 mm Hg 12/25/2024 Height 60 in 12/25/2024 Blood pressure systolic 126 mm Hg 12/25/2024 Weight 181 lbs 12/25/2024 BMI 35.35 kg/m2 12/25/2024 Encounters Encounter Location Date Provider Diagnosis [facility] [address] [id number] 12/25/2024 RAHUL DUNN Adult-onset obesity E66.9 ; BMI 35.0-35.9,adult Z68.35 ; Episodic migraine G43.909 ; Primary insomnia F51.01 and Acne vulgaris L70.0 [facility] [address] [id number] 12/23/2024 RAHUL DUNN Assessments Encounter Date Diagnosis [...] Consider using apps like 7 minute excercise, [employer] Axcesspal, lose it, stick as needed for self-monitoring and weight management. Consider group exercises. Consider hiring a personal financial counselor. Regular exercise is ann to sustainable health [...] counseling and psychiatry and Dr Bejarano at [facility]. We would like to cover regular topics [...] Dictation was accomplished with the use of [employer] voice recognition software, prone to medical misidentifications [...] Consider using apps like 7 minute excercise, [employer] Axcesspal, lose it, stick as needed for self-monitoring and weight management. Consider group exercises. Consider hiring a personal financial counselor. Regular exercise is ann to sustainable health [...] counseling and psychiatry and Dr Bejarano at [facility]. We would like to cover regular topics [...] Dictation was accomplished with the use of [employer] voice recognition software, prone to medical misidentifications [...] Consider using apps like 7 minute excercise, [employer] Ax[employer]pal, lose it, stick as needed for self-monitoring and weight management. Consider group exercises. Consider hiring a personal financial counselor. Regular exercise is ann to sustainable health [...] counseling and psychiatry and Dr Bejarano at [facility]. We would like to cover regular topics [...] Dictation was accomplished with the use of [employer] voice recognition software, prone to medical misidentifications [...] level. Consider using apps like 7 minute exceSimplificareise, [employer] Axcesspal, lose it, stick as needed for self-monitoring and weight management. Consider group exercises. Consider hiring a personal financial counselor. Regular exercise is ann to sustainable health [...] counseling and psychiatry and Dr Bejarano at [facility]. We would like to cover regular topics [...] Dictation was accomplished with the use of [employer] voice recognition software, prone to medical misidentifications [...] Consider using apps like 7 minute excercise, [employer]cesspal, lose it, stick as needed for self-monitoring and weight management. Consider group exercises. Consider hiring a personal financial counselor. Regular exercise is ann to sustainable health [...] counseling and psychiatry and Dr Bejarano at [facility]. We would like to cover regular topics [...] Dictation was accomplished with the use of [employer] voice recognition software, prone to medical misidentifications [...] Insured Coverage Start Date Coverage End Date [facility] and [facility] [address] [place] [address] [id number] Ellen Swanson Self - patient is the insured
[2025-04-29 08:52] LABS: Hematocrit 41.4 % (37.0-47.0); Hemoglobin 13.7 g/dl (12.0-16.0); Mean Corpuscular HGB Conc 33.1 g/dl (31.0-35.0); Mean Corpuscular Hemoglobin 30.6 pg (27.0-33.0); Mean Corpuscular Volume 92.4 fL (80.0-98.0); NRBC Abs Auto 0.000 X10*3/uL (0.0-0.012); NRBC Pct Auto 0.0 /100WBC (0.0-0.2); Platelet Count 400 X10*3/uL (160-400); Red Blood Count 4.48 X10*6/uL (4.20-5.50); White Blood Count 5.0 X10*3/uL (4.8-10.8)
[2025-04-29 09:21] LABS: Alanine Aminotransferase 21 U/L (0-31); Albumin Level 4.4 g/dL (3.5-5.0); Alkaline Phosphatase 58 U/L (39-117); Anion Gap 9 (12-20); Aspartate Amino Transferase 20 U/L (5-31); Blood Urea Nitrogen 13 mg/dL (9-16); Calcium 9.4 mg/dL (8.4-10.2); Carbon Dioxide 29 mmol/L (22-29); Chloride 107 mmol/L (96-108); Cholesterol 229 mg/dL (<200); Estimated Glomerular Filt Rate > 60; HDL Cholesterol 65 mg/dL (>40); Potassium 4.0 mmol/L (3.3-5.1); Sodium 141 mmol/L (135-145); Total Protein 7.5 g/dL (6.5-8.0); Triglycerides 150 mg/dL (<150)
[2025-04-30 19:53] LABS: Antibody to SS-A Antigen <1.0 NEG AI (<1.0 NEG); Antibody to SS-B Antigen <1.0 NEG AI (<1.0 NEG)
[2025-05-01 17:13] LABS: Anti Nuclear Antibody Screen NEGATIVE (NEGATIVE)
== END 2025-04-29 07:33 | disposition home or self-care (01) ==
LOC: HO.LAB 07:32
PROVIDERS: PCP Physician Assistant Medical; Visit Provider Physician Assistant Medical
DX: Z00.00 Encounter for general adult medical examination without abnormal findings (principal); G43.D0 Abdominal migraine, not intractable; Z13.6 Encounter for screening for cardiovascular disorders; I77.6 Arteritis, unspecified; E78.5 Hyperlipidemia, unspecified
CPT/HCPCS: 36415; 80053; 80061; 84443; 85027; 86038; 86140; 86235